=== PATIENT | male | born 1995 | race Caucasian/White ===

== ENCOUNTER 2017-06-04 18:52 | Emergency (ER) | payer OTHER, MEDICAID ==
[2017-06-04 18:56] VITALS: BP 136/81; PULSE 72; RESP 16; TEMP 98.1; O2SAT 97
--- NOTE | 2017-06-04 19:14 | EDPHY ---
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 Source: Patient Exam Limitations: No limitations - Personal History Current Tetanus Diphtheria and Acellular Pertussis (TDAP): Yes - Medical/Surgical History Hx Asthma: No Hx Chronic Respiratory Disease: No Hx Diabetes: No Hx Cardiac Disease: No Hx Renal Disease: No Hx Cirrhosis: No Hx Alcoholism: No Hx HIV/AIDS: No Hx Splenectomy or Spleen Trauma: No Other PMH: denies - Social History Smoking Status: Current some day smoker Time Seen by Provider: 06/04/17 19:11 HPI/ROS: HPI: This is a 22-year-old male who presents with Chief Complaint: 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 He denies any paresthesias/skin changes/decreased range of motion. He reports that his tetanus is up-to-date. He applied direct pressure. Not on any blood thinners. Modifying Factors: None Comment: ROS: see HPI Constitutional: No fever, no chills, no weight loss Eyes: No blurred vision Respiratory: No shortness of breath, no cough Cardiovascular: No chest pain Gastrointestinal: No nausea, no vomiting no diarrhea Genitourinary: No dysuria Extremities: No myalgias Neurologic: No weakness, no numbness Skin: No rashes Hematologic: No bruising, no bleeding MEDICAL/SURGICAL/SOCIAL HISTORY: Medical history: Generally healthy. Does not take any regular medications. Surgical history: Denies Social history: Employed. CONSTITUTIONAL: Polite and cooperative young adult white male awake and alert, no obvious distress HEENT: Atraumatic and normocephalic, PERRL, EOMI. Tympanic membranes clear. Oropharynx clear, no exudate and moist pink mucosa. Airway patent. No lymphadenopathy. No meningismus. Cardiovascular: Normal S1/S2, regular rate, regular rhythm, without murmur rub or gallop. PULMONARY/CHEST: Symmetrical and nontender. Clear to auscultation bilaterally. Good air movement. No accessory muscle usage. ABDOMEN: Soft, nondistended, nontender, no rebound, no guarding, no peritoneal signs, no masses or organomegaly. No CVAT. 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 Flexion, extension, light touch sensation intact. no deformities, no clubbing, no cyanosis or edema. NEUROLOGICAL: no focal neuro deficits. GCS 15. SKIN: Warm and dry, no erythema. no rash. Good capillary refill. (Alma Gibson) Constitutional: Initial Vital Signs Temperature (C) 36.7 C 06/04/17 18:54 Heart Rate 72 06/04/17 18:54 Respiratory Rate 16 06/04/17 18:54 Blood Pressure 136/81 H 06/04/17 18:54 O2 Sat (%) 97 06/04/17 18:54 O2 Delivery Mode Room Air Allergies/Adverse Reactions: No Known Allergies Allergy (Verified 06/04/17 18:53) Home Medications: Medication Instructions Recorded NK [No Known Home Meds] 09/08/15 Medical Decision Making Procedures: Procedure: Laceration repair. Verbal consent was obtained from the patient. The 0.5 cm, linear, superficial, simple laceration on the left index finger was anesthetized in the usual fashion using 2 mL of 0.5% Bupivacaine. The wound was irrigated, draped and explored to its base with a gloved finger. There were no deep structures involved. No tendon injury was identified. The wound was repaired with #2, 6- 0 Prolene in simple interrupted pattern. Clean sterile dressing applied. Good hemostasis was achieved and patient tolerated procedure well. The procedure was performed by myself. Procedure: Splint placement. A left finger splint was applied by the Emergency Room histology technician. After application of the splint I returned and re-examined the patient. The splint was adequately immobilizing the joint and distal to the splint the patient's circulation and sensation was intact. (Alma Gibson) ED Course/Re-evaluation: Wound care and laceration repair No signs of neurovascular compromise/tenting of skin/compartment syndrome/ extremities and joints examined above and below area of concern and are neurovascularly intact/foreign body/tendon injury. Tetanus up-to-date. Two sutures placed, clean sterile dressing. This patient was seen under the supervision of my primary supervising physician. I evaluated care for this patient independently. Discussed this patient with Dr. Wells who did not see the patient. (Alma Gibson) Departure - Departure Disposition: Home, Routine, Self-Care Clinical Impression: Laceration of left index finger Qualifiers: Encounter type: initial encounter Damage to nail status: without damage Foreign body presence: without foreign body Qualified Code(s): S61.211A - Laceration without foreign body of left index finger without damage to nail, initial encounter Condition: Good Instructions: Finger Laceration (ED) Additional Instructions: Keep the dressing/splint dry and in place for 48 hours. After 48 hours, you may remove the dressing; wash the site daily with mild soap and water; then pat dry. Take Tylenol 650 mg every 4 hours and/or Ibuprofen 600 mg every 8 hours with food as needed for pain. Return to the emergency room in 7-10 days to have your sutures removed. Referrals: [facility],. [Clinic] - As per Instructions
== END 2017-06-04 19:33 | disposition home or self-care (01) ==
PROC: 0HQGXZZ Repair Left Hand Skin, External Approach (ICD-10-PCS; principal; 2017-06-04)
DX: S61.215A Laceration without foreign body of left ring finger without damage to nail, initial encounter (principal); F17.200 Nicotine dependence, unspecified, uncomplicated; W29.0XXA Contact with powered kitchen appliance, initial encounter; Y99.0 Civilian activity done for income or pay; Y93.89 Activity, other specified
CPT/HCPCS: L3925

== ENCOUNTER → 2018-08-11 | Outpatient (CLI) | payer MEDICAID | LOC: FIMAGING 17:33 | PROVIDERS: ATTEND Family Medicine | DX: S62.626A Displaced fracture of middle phalanx of right little finger, initial encounter for closed fracture (principal) ==